=== PATIENT | female | born 1965 | race Caucasian/White ===

== ENCOUNTER 2019-05-01 08:43 | Emergency (ER) | payer OTHER, SELFPAY ==
--- NOTE | ~2019-05-01 | XR_ITS ---
EXAMINATION: XR knee RT 3V DATE: 05/01/2019 09:52 INDICATION: Nontraumatic right knee pain TECHNIQUE: AP, flexed lateral views and sunrise of the right knee were obtained COMPARISON: None. FINDINGS: Alignment is normal. No fracture. No joint effusion/layering lipohemarthrosis. Soft tissues are unre markable. IMPRESSION: 1. No right knee joint effusion or acute osseous abnormality. Reviewed, dictated and finalized at location [facility]
[2019-05-01 08:48] VITALS: BP 154/85; PULSE 80; RESP 16; TEMP 37.2; O2SAT 100
[2019-05-01] MEDS: ACETAMINOPHEN 500 MG TABLET 1000 MG PO (09:32)
--- NOTE | 2019-05-01 09:35 | ED.GENADULT ---
HPI - General Adult General Chief complaint: Extremity Injury, Lower Stated complaint: R Knee pain Time Seen by Provider: 05/01/19 09:18 Source: patient Mode of arrival: ambulatory Limitations: no limitations History of Present Illness HPI narrative: Patient is a 53-year-old female who presents to emergency department for evaluation of right posterior knee pain that has been present now for the last month was ambulating with her dog last night felt a pop in the posterior aspect of the knee has since had what she believes to be swelling with moderate aching pain worse with activity and movement that presents with position patient presents per private vehicle in no distress has not taken anything for her symptoms Related Data Allergies Allergy/AdvReac Type Severity Reaction Status Date / Time No Known Allergies Allergy Unverified 05/01/19 09:07 Review of Systems Review of Systems: Narrative: CONSTITUTIONAL: Denies fever, chills CARDIOVASCULAR: Denies chest pain, palpitations, or edema. RESPIRATORY: Denies cough or dyspnea. SKIN: Positive for swelling MUSCULOSKELETAL: Positive for right knee pain NEUROLOGIC: Denies numbness or tingling PMFSH Surgical History Surgical History History of orthopedic surgery Social History Social History (Updated 05/01/19 @ 09:37 by Paul Grullon PA-C) Smoking status: Never smoker Gender identity (if verbalized by the patient): Female Exam Narrative: Exam Narrative: GENERAL: Well-appearing, well-nourished, and in no acute distress. HEAD: Normocephalic, atraumatic. EYES: PERRLA and EOMI. ENT: Nares clear, no rhinorrhea or epistaxis. Mucous membranes moist. CHEST: Clear to auscultation. No respiratory distress. No wheezes rales or rhonchi HEART: Regular rate and rhythm. No murmur heard. Normal peripheral pulses. EXTREMITIES: Normal range of motion. No edema. Tenderness to the posterior aspect of the right knee no other deformities noted remainder of extremity nontender SKIN: Warm, dry, no rash. NEURO: No focal deficits. Alert and oriented x3. Neurovascularly intact PSYCH: Normal mood and affect. Course Course Emergency Course: Patient in the room aware of case findings treatment plan and diagnosis resting comfortably in no distress Vital Signs Vital signs: Vital Signs Temperature 99.0 F 05/01/19 08:48 Pulse Rate 80 05/01/19 08:48 Respiratory Rate 16 05/01/19 08:48 Blood Pressure 154/85 H 05/01/19 08:48 Pulse Oximetry 100 05/01/19 08:48 Temperature 99.0 F 05/01/19 08:48 Pulse Rate 80 05/01/19 08:48 Respiratory Rate 16 05/01/19 08:48 Blood Pressure 154/85 H 05/01/19 08:48 Pulse Oximetry 100 05/01/19 08:48 Medical Decision Making MDM Narrative Medical decision making narrative: Patients injury or pain is consistent with musculoskeletal etiology. No signs of neurological or vascular compromise on exam. Compartments and tisues are soft without signs of compartment syndrome. Pain is felt appropriate for further evaluation on an outpatient basis. Vital Signs Vital Signs: Vital Signs Temperature 99.0 F 05/01/19 08:48 Pulse Rate 80 05/01/19 08:48 Respiratory Rate 16 05/01/19 08:48 Blood Pressure 154/85 H 05/01/19 08:48 Pulse Oximetry 100 05/01/19 08:48 Temperature 99.0 F 05/01/19 08:48 Pulse Rate 80 05/01/19 08:48 Respiratory Rate 16 05/01/19 08:48 Blood Pressure 154/85 H 05/01/19 08:48 Pulse Oximetry 100 05/01/19 08:48 Imaging Data Radiologist's impression: ITS Impressions Knee X-Ray 05/01/19 10:12 IMPRESSION: 1. No right knee joint effusion or acute osseous abnormality. Discharge Plan Discharge Clinical Impression: Acute pain of right knee Patient Disposition: Home, Self-Care Condition: Stable Instructions: Antibiotic Form, Arthralgia (ED) Additional Instructions: Wear Alexsander wrap and use walker with limite
== END 2019-05-01 11:09 | disposition home or self-care (01) ==
PROVIDERS: Emergency Provider Family Medicine
DX: M25.561 Pain in right knee (principal)
CPT/HCPCS: 73562; 99283; A9270